=== PATIENT | female | born 1945 | race Caucasian/White ===

== ENCOUNTER 2022-01-21 22:07 | Emergency (ER) | payer MEDICARE, SELFPAY ==
--- NOTE | ~2022-01-21 | CT_ITS ---
EXAMINATION: CT HEAD WITHOUT CONTRAST CT CERVICAL SPINE WITHOUT CONTRAST CLINICAL INFORMATION: Fall. Hematoma occipital region. Amnesia. COMPARISON: None. TECHNIQUE: Imaging was performed from the skull base to vertex without intravenous administration of contrast. In addition, helical noncontrast CT imaging was acquired through the cervical spine and source images were reviewed along with axial reconstructions and sagittal and coronal MPRs. [This CT examination was performed using dose optimization techniques as appropriate, variously including the following: *Automated exposure control *Adjustment of mA and/or kV according to patient size (this includes techniques or standardized protocols for targeted exams where dose is matched to indication/reason for exam; i.e. extremities or head) *Use of iterative reconstruction technique] DLP: 1027 mGy-cm FINDINGS: HEAD: Scalp hematoma at the posterior right vertex. No skull fracture. No intracranial mass, hemorrhage, or midline shift is visualized. The ventricles and sulci are proportional. No extra-axial collections are identified. The paranasal sinuses and mastoid air cells are well aerated. CERVICAL SPINE: There is no evidence of acute cervical spine fracture. Vertebral bodies remain normal in height. Cervical vertebrae have normal alignment. There is multilevel degenerative spondylosis of the cervical spine with disc height narrowing and endplate spurs and facet joint arthrosis No pre- or paravertebral soft tissue abnormality is identified. Limited assessment of the lung apices is unremarkable. CT/CT head/brain wo IV con IMPRESSION: 1. No acute intracranial pathology. 2. No CT evidence of acute cervical spine fracture or traumatic subluxation
--- NOTE | ~2022-01-21 | CT_ITS ---
EXAMINATION: CT HEAD WITHOUT CONTRAST CT CERVICAL SPINE WITHOUT CONTRAST CLINICAL INFORMATION: Fall. Hematoma occipital region. Amnesia. COMPARISON: None. TECHNIQUE: Imaging was performed from the skull base to vertex without intravenous administration of contrast. In addition, helical noncontrast CT imaging was acquired through the cervical spine and source images were reviewed along with axial reconstructions and sagittal and coronal MPRs. [This CT examination was performed using dose optimization techniques as appropriate, variously including the following: *Automated exposure control *Adjustment of mA and/or kV according to patient size (this includes techniques or standardized protocols for targeted exams where dose is matched to indication/reason for exam; i.e. extremities or head) *Use of iterative reconstruction technique] DLP: 1027 mGy-cm FINDINGS: HEAD: Scalp hematoma at the posterior right vertex. No skull fracture. No intracranial mass, hemorrhage, or midline shift is visualized. The ventricles and sulci are proportional. No extra-axial collections are identified. The paranasal sinuses and mastoid air cells are well aerated. CERVICAL SPINE: There is no evidence of acute cervical spine fracture. Vertebral bodies remain normal in height. Cervical vertebrae have normal alignment. There is multilevel degenerative spondylosis of the cervical spine with disc height narrowing and endplate spurs and facet joint arthrosis No pre- or paravertebral soft tissue abnormality is identified. Limited assessment of the lung apices is unremarkable. CT/CT cervical spine wo IV con IMPRESSION: 1. No acute intracranial pathology. 2. No CT evidence of acute cervical spine fracture or traumatic subluxation
[2022-01-21 22:14] VITALS: BP 117/60; BP 136/77; PULSE 78; PULSE 85; RESP 18; TEMP 36.4; O2SAT 98; BMI 28.3
--- NOTE | 2022-01-21 22:26 | ECG_ITS ---
Test Reason : FALL Blood Pressure : / mmHG Vent. Rate : 090 BPM Atrial Rate : 090 BPM P-R Int : 228 ms QRS Dur : 078 ms QT Int : 396 ms P-R-T Axes : 037 -32 018 degrees QTc Int : 484 ms Sinus rhythm with 1st degree A-V block Left anterior fascicular block RSR' or QR pattern in V1 suggests right ventricular conduction delay Abnormal ECG No previous ECGs available Referred By: Rudy Urban Electronically Signed By:THOMAS LUQUE MD
--- NOTE | 2022-01-21 22:28 | ED_ITS ---
HPI - Fall General Chief Complaint: Fall Stated Complaint: fall Time Seen by Provider: 01/21/22 22:12 Source: patient Mode of arrival: EMS Limitations: no limitations History of Present Illness HPI Narrative: 76-year-old female who presents emergency department for evaluation of fall with head injury. The patient was at a wedding. She drink 2 scotch and linares in 2 glasses of Merlot wine. She went on to the dance floor to dance the Electric Slide when she fell. There were several emergency department nurses at the waiting in they attended the patient immediately. There was no reported loss of consciousness. The patient did sustain a head injury and was bleeding from a right occipital scalp hematoma. The patient reported amnesia of the events that occurred prior to the fall and events that occurred just after the fall. In the emergency department she is able answer questions without any difficulty. The patient has chronic left knee pain and states that she takes naproxen for this pain, she took naproxen at around noon time. She is not on any other blood thinners. Paramedics reported normal vital signs. Patient's 12 EKG done by the paramedics did reveal a 1st degree AV block with a ME interval of approximately 240 milliseconds with no other acute abnormalities MD complaint: fall Onset (ago): hour(s) (1) Fall from: standing Fall witnessed: yes, by bystander Place fall occurred: other (Wedding dance floor) Loss of consciousness: none Prolonged down time: no Symptoms prior to fall: other (Unknown, patient has amnesia of the event) Context: other (Unknown) Location of injury: head Associated symptoms (after fall): lightheaded and other (Nausea) Related Data Previous Rx's Medication Instructions Recorded metoclopramide HCl 10 mg tablet 10 mg PO Q6H PRN nausea and 01/22/22 (Reglan) vomiting #14 tabs Allergies Allergy/AdvReac Type Severity Reaction Status Date / Time No Known Allergies Allergy Verified 01/21/22 22:18 Review of Systems Review of Systems: Yes all other systems are reviewed and are negative [facility] Past Medical History [facility] Narrative: Past medical history: Hypertension, hyperlipidemia. Social history: The patient is visiting the area from [place]. The patient is retired nurse practitioner. She denies tobacco and drug use. She does admit to drinking alcohol at the wedding. Social History Social History Advance Directives: No Physical Exam Vital Signs: Vital Signs: Last Vital Signs Temp 97.8 F 01/21/22 23:30 Pulse 98 01/21/22 23:30 Resp 14 01/21/22 23:30 BP 90/68 01/21/22 23:30 Pulse Ox 96 01/21/22 23:30 O2 Del Method 01/21/22 23:30 BMI result Body Mass Index 28.3 Const: General: cooperative and no acute distress Orientation/consciousness: oriented to person and oriented to place Limitations: no limitations HEENT: Other: Patient has a 4 x 4 cm hematoma occupital area of the scalp, Ears: external ears normal General nose exam: Normal external nose present Face and sinus: Yes normal facial exam Mouth: Normal oral and palatal mucosa present Throat: Yes posterior oropharynx normal Eyes: General: appearance normal, both eyes and all related structures Pu pils: Equal, round and reactive pupils present Neck: Neck: Yes normal visual inspection, Yes no lymphadenopathy, Yes trachea midline and Yes supple Chest: Chest palpation & inspection: normal inspection of the chest and normal palpation of entire chest wall Resp: Effort & Inspection: normal respiratory effort and able to speak in complete sentences Auscultation: clear to auscultation bilaterally Cardio: Rate: regular rate Rhythm: regular rhythm Heart sounds: S1 normal heart sound present, S2 normal heart sound present and no murmurs GI: Inspection: Yes normal to inspection Palpation (GI): Soft to palpation, nontender and no guarding Auscultation: normal bowel sounds : General: Yes no CVA tenderness Back/Spine/Pelvis: Back: no CVA tenderness Skin: General skin exam: no rashes or lesions noted Neuro: General: oriented to person and oriented to place Cranial nerves: Yes CN's II-XII intact bilaterally and Yes Equal, round and reactive pupils present Cognition (Neuro): normal cognition Motor exam (neuro): 5/5 motor strength present throughout Extrem: General: Yes normal to inspection Psych: Appearance: grossly normal Speech and movement: Normal speech and movement present Affect: normal affect Attitude: cooperative Course Course Course Narrative: 76-year-old female who presents emergency department for evaluation a fall while she was on a dance floor at a wedding. The patient did strike her head and does have a hematoma with bleeding to the right posterior aspect of her scalp. The p pancho has no memory the events prior to the fall and memories after the fall consistent with amnesia from her head injury. Her exam was otherwise unremarkable. I did order laboratory evaluation to include CBC, CMP, PT/INR, PTT, troponin, blood alcohol level. I also ordered an EKG, CT scan of the head and cervical spine without IV contrast. Patient did receive Zofran 4 mg IV EN route to the hospital and she continues to complain of nausea and she was given a 2nd dose of Zofran 4 mg IV. Patient was ordered to get a Tdap as well 0026: Patient's laboratory evaluation was unremarkable. The patient's high sensitivity troponin I was below detectable limits. Her COVID-[address] scan of the head and cervical spine without IV contrast was negative for skull fracture, bleed, cervical fracture. The patient has an abrasion to her scalp with a hematoma and did not require suture repair. I did discuss these findings with the patient including the 12 EKG which showed a second-degree AV block which the patient was unaware of. Despite 2 doses of Zofran she still had nausea and was given a dose of regular and 10 mg IV and Benadryl 50 mg IV with improvement of her symptoms. She was also given Tylenol 975 mg orally for her headache. She was given printed and verbal instructions discharged home. MDM - Fall Lab Data Attestation: I reviewed the patient's lab results. Result diagrams: 01/21/22 22:59 01/21/22 22:59 Labs: Lab Results 01/21/22 01/21/22 01/21/22 Range/Units 22:59 22:59 22:59 WBC 10.3 (4.8-10.8) X10*3/uL RBC 4.22 (4.20-5.50) X10*6/uL Hgb 12.3 (12.0-16.0) g/dl Hct 37.7 (37.0-47.0) % MCV 89.3 (80.0-98.0) fL MCH 29.1 (27.0-33.0) pg MCHC 32.6 (31.0-35.0) g/dl RDW 12.9 (11.0-16.0) % Plt Count 314 (160-400) X10*3/uL MPV 8.6 L (9.4-12.3) fL Immature Gran % (Auto) 0.4 (0.0-0.4) % Neut % (Auto) 70.2 (45-73) % Lymph % (Auto) 21.5 (20-40) % Bonner % (Auto) 6.2 (2-11) % Eos % (Auto) 1.3 (0-4) % Baso % (Auto) 0.4 (0-2) % Lymph # (Auto) 2.2 (1.2-4.9) X10*3/uL Bonner # (Auto) 0.6 (0.1-1.2) X10*3/uL Eos # (Auto) 0.1 (0.0-0.4) X10*3/uL Baso # (Auto) 0.0 (0.0-0.2) X10*3/uL Abs Immat Gran (auto) 0.04 H (0.00-0.03) X10*3/uL Absolute Neuts (auto) 7.2 (2.0-8.3) x10*3/uL Absolute Nucleated RBC 0.000 (0.0-0.012) X10*3/uL Nucleated RBC % (auto) 0.0 (0.0-0.2) /100WBC PT 11.1 (10.0-13.1) SEC INR 1.0 (0.9-1.1) APTT 29.3 (26.0-36.4) SEC Sodium 142 (135-145) mmol/L Potassium 3.8 (3.3-5.1) mmol/L Chloride 102 (96-108) mmol/L Carbon Dioxide 30 H (22-29) mmol/L Anion Gap 14 (12-20) BUN 18 H (9-16) mg/dL Creatinine 0.88 (0.5-1.4) mg/dL Estim Creat Clear Calc 58.7 Estimated GFR > 60 Random Glucose 181 H (60-115) mg/dL Calcium 9.1 (8.4-10.2) mg/dL Total Bilirubin 0.2 (0.0-1.0) mg/dL AST 18 (5-31) U/L ALT 18 (0-31) U/L Alkaline Phosphatase 71 (39-117) U/L Troponin I High Sens (<3.5-17.0) ng/L Total Protein 6.8 (6.5-8.0) g/dL Albumin 4.0 (3.5-5.0) g/dL Ethyl Alcohol < 10 mg/dL COVID-19 ([facility]EL[facility]) (Negative) COVID-19 Clin Com 01/21/22 01/21/22 Range/Units 22:59 22:59 WBC (4.8-10.8) X10*3/uL RBC (4.20-5.50) X10*6/uL Hgb (12.0-16.0) g/dl Hct (37.0-47.0) % MCV (80.0-98.0) fL MCH (27.0-33.0) pg MCHC (31.0-35.0) g/dl RDW (11.0-16.0) % Plt Count (160-400) X10*3/uL MPV (9.4-12.3) fL Immature Gran % (Auto) (0.0-0.4) % Neut % (Auto) (45-73) % Lymph % (Auto) (20-40) % Bonner % (Auto) (2-11) % Eos % (Auto) (0-4) % Baso % (Auto) (0-2) % Lymph # (Auto) (1.2-4.9) X10*3/uL Bonner # (Auto) (0.1-1.2) X10*3/uL Eos # (Auto) (0.0-0.4) X10*3/uL Baso # (Auto) (0.0-0.2) X10*3/uL Abs Immat Gran (auto) (0.00-0.03) X10*3/uL Absolute Neuts (auto) (2.0-8.3) x10*3/uL Absolute Nucleated RBC (0.0-0.012) X10*3/uL Nucleated RBC % (auto) (0.0-0.2) /100WBC PT (10.0-13.1) SEC INR (0.9-1.1) APTT (26.0-36.4) SEC Sodium (135-145) mmol/L Potassium (3.3-5.1) mmol/L Chloride (96-108) mmol/L Carbon Dioxide (22-29) mmol/L Anion Gap (12-20) BUN (9-16) mg/dL Creatinine (0.5-1.4) mg/dL Estim Creat Clear Calc Estimated GFR Random Glucose (60-115) mg/dL Calcium (8.4-10.2) mg/dL Total Bilirubin (0.0-1.0) mg/dL AST (5-31) U/L ALT (0-31) U/L Alkaline Phosphatase (39-117) U/L Troponin I High Sens < 3.5 (<3.5-17.0) ng/L Total Protein (6.5-8.0) g/dL Albumin (3.5-5.0) g/dL Ethyl Alcohol mg/dL COVID-19 ([facility]MA) Negative (Negative) COVID-19 Clin Com See Note ECG Data Attestation: I personally reviewed and interpreted this ECG as follows: Interpretation: 2239: Sinus rhythm with a rate of 90, first-degree AV block with ME interval of 220 milliseconds, normal QRS, prolonged QTC of 484 milliseconds, no ST segment elevation, no ST segment depression, RR prime in V1, no PVCs no PACs. No old EKG for comparison. Discharge Plan Discharge Clinical Impression: Hematoma of occipital region of scalp Fall Qualifiers: Encounter type: initial encounter Qualified Code(s): W19.XXXA - Unspecified fall, initial encounter Closed head injury Qualifiers: Encounter type: initial encounter Qualified Code(s): S09.90XA - Unspecified injury of head, initial encounter Concussion Qualifiers: Encounter type: initial encounter Loss of consciousness presence/duration: without LOC Qualified Code(s): S06.0X0A - Concussion without loss of consciousness, initial encounter Abrasion of scalp Qualifiers: Encounter type: initial encounter Qualified Code(s): S00.01XA - Abrasion of scalp, initial encounter Patient Disposition: Home, Self-Care Instructions: Concussion (ED), Abrasion (ED) Additional Instructions: Your laboratory evaluation was unremarkable. The CT scan your brain revealed no skull fracture or bleeding in the brain which is reassuring. The CT scan of your neck/cervical spine revealed no broken bone/fracture. Your 12 EKG was unremarkable except for a first-degree AV block. You should dis cuss this with your doctor, usually the management is to get a repeat EKG yearly. You received a Tdap vaccination today Apply bacitracin to the abrasion twice a day Take Tylenol (acetaminophen) 500 mg pills, 2 pills every 4 to 6 hours as needed for pain. Stop your naproxen for 24 hours then you can resume taking this after 24 hours. Reglan (metoclopramide) in 10 mg, 1 pill When you take regular and also take Benadryl 25 mg, 2 pillsExcedrin migraine, 2 pills. These medications will make you sleepy, do not drive or work after taking these medications. Follow-up with your doctor in 2 days. Please return to the emergency department if your symptoms get worse or if you develop any symptoms that are concerning to you. Prescriptions: New metoclopramide HCl [Reglan] 10 mg tablet 10 mg PO Q6H PRN (Reason: nausea and vomiting) Qty: 14 0RF
[2022-01-21] MEDS: ondansetron HCL 4 MG/2 ML VIAL IVPUSH (22:32)
[2022-01-21 23:04] LABS: MANUAL DIFF FLAG NO
[2022-01-21 23:05] LABS: Basophils Percent Auto 0.4 % (0-2); Eosinophils Absolute Auto 0.1 X10*3/uL (0.0-0.4); Eosinophils Percent Auto 1.3 % (0-4); Hematocrit 37.7 % (37.0-47.0); Hemoglobin 12.3 g/dl (12.0-16.0); Imm Gran Abs Auto 0.04 X10*3/uL (0.00-0.03); Imm Gran Pct Auto 0.4 % (0.0-0.4); Lymphocytes Absolute Auto 2.2 X10*3/uL (1.2-4.9); Lymphocytes Percent Auto 21.5 % (20-40); Mean Corpuscular HGB Conc 32.6 g/dl (31.0-35.0); Mean Corpuscular Hemoglobin 29.1 pg (27.0-33.0); Mean Corpuscular Volume 89.3 fL (80.0-98.0); Mean Platelet Volume 8.6 fL (9.4-12.3); Monocytes Absolute Auto 0.6 X10*3/uL (0.1-1.2); Monocytes Percent Auto 6.2 % (2-11); Neutrophils Absolute Auto 7.2 x10*3/uL (2.0-8.3); Neutrophils Percent Auto 70.2 % (45-73); Platelet Count 314 X10*3/uL (160-400); Red Blood Count 4.22 X10*6/uL (4.20-5.50); Red Cell Distribution Width 12.9 % (11.0-16.0); White Blood Count 10.3 X10*3/uL (4.8-10.8)
[2022-01-21 23:14] LABS: Prothrombin Time 11.1 SEC (10.0-13.1)
[2022-01-21 23:16] LABS: Partial Thromboplastin Time 29.3 SEC (26.0-36.4)
[2022-01-21 23:21] LABS: Alanine Aminotransferase 18 U/L (0-31); Alkaline Phosphatase 71 U/L (39-117); Anion Gap 14 (12-20); Aspartate Amino Transferase 18 U/L (5-31); Bilirubin Total 0.2 mg/dL (0.0-1.0); Blood Urea Nitrogen 18 mg/dL (9-16); Calcium 9.1 mg/dL (8.4-10.2); Carbon Dioxide 30 mmol/L (22-29); Chloride 102 mmol/L (96-108); Creatinine Clr Calc Pharmacy 58.7; Estimated Glomerular Filt Rate > 60; Ethanol < 10 mg/dL; Glucose Random 181 mg/dL (60-115); Potassium 3.8 mmol/L (3.3-5.1); Sodium 142 mmol/L (135-145); Total Protein 6.8 g/dL (6.5-8.0)
[2022-01-21] MEDS: Diphth,Pertus(ACell),Tet Adult 0.5 ML SYRINGE IM (23:21)
[2022-01-21] MEDS: Metoclopramide HCl 10 MG/2 ML VIAL IVPUSH (23:21)
[2022-01-21] MEDS: diphenhydrAMINE HCL 50 MG/ML VIAL IVPUSH (23:21)
[2022-01-21 23:23] LABS: COVID-19 Test Negative (Negative)
[2022-01-21 23:24] LABS: Troponin-I High Sensitivity < 3.5 ng/L (<3.5-17.0)
[2022-01-21 23:30] VITALS: BP 90/68; PULSE 98; RESP 14; TEMP 36.6; O2SAT 96
--- NOTE | 2022-01-22 00:57 | PC.NURSE ---
Wound cleansed and dressed with bacitracin.
== END 2022-01-22 00:57 | disposition home or self-care (01) ==
PROVIDERS: Emergency Provider Emergency Medicine Emergency Medical Services
DX: S00.01XA Abrasion of scalp, initial encounter (principal); R51.9 Headache, unspecified; M54.2 Cervicalgia; W01.0XXA Fall on same level from slipping, tripping and stumbling without subsequent striking against object, initial encounter; Y93.41 Activity, dancing; Y92.9 Unspecified place or not applicable; Y99.9 Unspecified external cause status; Z20.822 Contact with and (suspected) exposure to COVID-19; Z79.899 Other long term (current) drug therapy
CPT/HCPCS: 70450; 72125; 80053; 82077; 84484; 85025; 85610; 85730; 87635; 90471; 90715; 93005; 96374; 96375; 99284; J1200; J2405; J2765